=== PATIENT | female | born 2000 | race Caucasian/White ===

== ENCOUNTER 2020-08-24 01:27 | Inpatient (IN) | payer OTHER ==
[~2020-08-24] VITALS: Ht 165.1 cm; Wt 54.0 kg
[2020-08-24 01:51] LABS: HEMATOCRIT 39.1 % (36.0-47.0); HEMOGLOBIN 12.3 g/dl (12.0-15.5); MEAN CORPUSCULAR HEMOGLOBIN 27.2 pg (27.0-33.0); MEAN CORPUSCULAR HGB CONC 31.5 g/dl (32.0-36.5); MEAN CORPUSCULAR VOLUME 86.3 fl (80.0-96.0); PLATELET COUNT, AUTOMATED 368 10^3/uL (150-450); RED BLOOD COUNT 4.53 10^6/uL (4.00-5.40)
[2020-08-24 02:26] LABS: HCG, SERUM QUALITATIVE NEGATIVE (NEGATIVE)
[2020-08-24 02:43] LABS: ACETAMINOPHEN LEVEL < 2.0 UG/ML (10.0-30.0); ALBUMIN 3.9 GM/DL (3.2-5.2); ALT/SGPT 14 U/L (12-78); BILIRUBIN,DIRECT 0.1 MG/DL (0.0-0.2); BILIRUBIN,TOTAL 0.3 MG/DL (0.2-1.0); BLOOD UREA NITROGEN 8 MG/DL (7-18); CARBON DIOXIDE LEVEL 28 MEQ/L (21-32); CHLORIDE LEVEL 106 MEQ/L (98-107); CREATININE FOR GFR 0.69 MG/DL (0.55-1.30); ETHYL ALCOHOL (ETHANOL) < 0.003 % (0.000-0.010); GLOMERULAR FILTRATION RATE > 60.0 (>60); GLUCOSE, FASTING 102 MG/DL (70-100); SALICYLATE LEVEL < 1.7 MG/DL (5.0-30.0); SODIUM LEVEL 140 MEQ/L (136-145); TOTAL PROTEIN 7.6 GM/DL (6.4-8.2)
[2020-08-24] MEDS ORDERED: NS 1,000 ML IV ONE (03:05)
[2020-08-24] MEDS ORDERED: ISOVUE-370 76% 100ML VIAL As Ordered ONE (03:07)
[2020-08-24 04:23] LABS: AMPHETAMINES LEVEL URINE NEGATIVE (NEGATIVE); BARBITURATES URINE NEGATIVE (NEGATIVE); BENZODIAZEPINES URINE NEGATIVE (NEGATIVE); CANNABINOIDS URINE NEGATIVE (NEGATIVE); COCAINE METABOLITE URINE NEGATIVE (NEGATIVE); METHADONE URINE NEGATIVE (NEGATIVE); OPIATES URINE NEGATIVE (NEGATIVE); PHENCYCLIDINE URINE NEGATIVE (NEGATIVE)
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
--- NOTE | 2020-08-24 05:48 | ECGEPIP ---
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
[2020-08-24 08:12] LABS: RSV AMPLIFICATION NEGATIVE (NEGATIVE)
[2020-08-24] MEDS ORDERED: MAALOX 30 ML SUSP *UDC PO PRN (15:05)
[2020-08-24] MEDS ORDERED: ACETAMINOPHEN TAB 650MG DOSE (2X325MG) PO PRN (15:05)
[2020-08-24] MEDS ORDERED: traZODone 50 MG TAB PO PRN (15:05)
[2020-08-24] MEDS ORDERED: MOM 30ML SUSPENSION UDC PO PRN (15:05)
[2020-08-24 17:05] VITALS: BP 110/75
[2020-08-25 06:29] VITALS: BP 123/61
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
[2020-08-25 16:18] VITALS: BP 102/89
[2020-08-25 16:20] VITALS: BP_SYST 123; BP_SYST 134; BP_SYST 140; BP_DIAS 64; BP_DIAS 67; BP_DIAS 73
[2020-08-26 07:00] VITALS: BP 111/55
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
[2020-08-26 16:33] VITALS: BP 111/61
[2020-08-27 06:22] VITALS: BP 101/57
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
[2020-08-27 16:19] VITALS: BP 106/62
[2020-08-28 06:32] VITALS: BP 109/56
[2020-08-28 16:30] VITALS: BP 111/65
[2020-08-29 06:41] VITALS: BP 117/55
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
[2020-08-29 19:26] VITALS: BP 135/83
[2020-08-30 06:29] VITALS: BP 94/55
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
--- NOTE | 2020-08-30 11:34 | MHIPN ---
[facility] PROGRESS NOTE DATE: 08/28/2020 This is a video assessment. She is in the inpatient unit here. I am at home. She is seen in the presence of staff. VITAL SIGNS: These are listed. Blood pressure 109/56, pulse 78, temperature 99.2. CHIEF COMPLAINT: Says feels okay. SUBJECTIVE: Seen for followup. Indicates feels okay. Moods have generally been good. Says had a bit of difficulty with sleep last night. Appetite is good. MENTAL STATUS EXAMINATION: Neat, cooperative. No agitation. No psychomotor retardation. Coherent. Affect is reactive. No evidence of any thoughts of harming herself or anyone else at present. No evidence of any psychosis. Cognition grossly intact. Judgment and insight improved. ASSESSMENT: Adjustment disorder with disturbance of emotions and conduct. PLAN: Continue current care and observations. Encourage participation in activities in the unit. She is to be seen tomorrow by the clinician assigned to her.
== END 2020-08-30 11:43 | disposition home or self-care (01) | DRG 882 ==
LOC: M ED 01:27 → M ED INP 15:02 → M PSY 16:58
PROVIDERS: ADMIT Psychiatry & Neurology Psychiatry; ATTEND Psychiatry & Neurology Psychiatry
DX: F43.25 Adjustment disorder with mixed disturbance of emotions and conduct (principal)